=== PATIENT | female | born 1960 | race Caucasian/White ===

== ENCOUNTER → 2020-07-24 | Day surgery (SDC) | payer OTHER ==
[2020-07-24 10:43] LABS: BASO % 0.9 % (0-2.0); EOS % 1.4 % (0-4.5); HEMATOCRIT 37.8 % (32.4-45.2); HEMOGLOBIN 12.7 GM/dL (10.7-15.3); MCH 29.2 pg (25.7-33.7); MCHC 33.7 g/dl (32.0-36.0); MEAN CELL VOLUME 86.5 fl (80-96); MEAN PLT VOLUME 9.5 fl (7.5-11.1); MONO % 6.5 % (3.8-10.2); NEUT % 63.2 % (42.8-82.8); PLATELET COUNT 220 K/MM3 (134-434); RBC 4.36 M/mm3 (3.60-5.2); RDW 13.1 % (11.6-15.6); WHITE BLOOD COUNT 5.1 K/mm3 (4.0-10.0)
[2020-07-24 10:54] LABS: EPI CELLS 7 /uL (0-25.1); HYALINE CASTS 0 /uL (0-3.1); URINE APPEARANCE CLEAR; URINE BACTERIA 309 /uL (0-1359); URINE BILIRUBIN NEGATIVE (NEGATIVE); URINE COLOR YELLOW; URINE GLUCOSE (UA) NEGATIVE (NEGATIVE); URINE KETONE NEGATIVE (NEGATIVE); URINE LEUK ESTERASE NEGATIVE (NEGATIVE); URINE NITRITE NEGATIVE (NEGATIVE); URINE PROTEIN NEGATIVE (NEGATIVE); URINE RBC 11 /uL (0-23.9); URINE UROBILINOGEN 0.2 mg/dL (0.2-1.0); URINE WBC 5 /uL (0-25.8)
[2020-07-24 11:04] LABS: ALBUMIN 4.1 g/dl (3.4-5.0)
[2020-07-24 11:05] LABS: CALCIUM 9.3 mg/dL (8.5-10.1)
[2020-07-24 11:06] LABS: ALBUMIN 4.1 g/dl (3.4-5.0); BLOOD UREA NITROGEN 20.5 mg/dL (7-18)
[2020-07-24 11:08] LABS: BILIRUBIN,DIRECT 0.1 mg/dL (0.0-0.2)
[2020-07-24 11:09] LABS: CREATININE 0.8 mg/dL (0.55-1.3); TOT PROT 8.3 g/dl (6.4-8.2)
[2020-07-24 11:11] LABS: BILIRUBIN,TOTAL 0.6 mg/dL (0.2-1); TOT PROT 8.3 g/dl (6.4-8.2)
== END | disposition home or self-care (01) ==
LOC: JRADIR 09:32
PROVIDERS: ATTEND Internal Medicine Endocrinology, Diabetes & Metabolism
PROC: 0G9K3ZX Drainage of Thyroid Gland, Percutaneous Approach, Diagnostic (ICD-10-PCS; principal; 2020-07-24)
DX: E04.1 Nontoxic single thyroid nodule (principal)
CPT/HCPCS: 10005; 36415; 76942; 80053; 80061; 80076; 81003; 83036; 83721; 84436; 84443; 85025; 86376; 88173; 88305-TC

== ENCOUNTER 2020-09-14 05:15 | Day surgery (SDC) | payer OTHER ==
[2020-09-12 15:32] VITALS: BMI 28.6
[2020-09-14 11:42] VITALS: TEMP 97.6
[2020-09-14 13:11] VITALS: BP 123/63; PULSE 59
== END 2020-09-14 13:00 | disposition home or self-care (01) ==
LOC: JASU-ENDO 05:15 → MERGE 05:15 → JASU-ENDO 13:00
PROVIDERS: ATTEND Internal Medicine Gastroenterology
PROC: 0DBH8ZX Excision of Cecum, Via Natural or Artificial Opening Endoscopic, Diagnostic (ICD-10-PCS; principal; 2020-09-14 09:45)
DX: Z12.11 Encounter for screening for malignant neoplasm of colon (principal); K57.30 Diverticulosis of large intestine without perforation or abscess without bleeding; K64.8 Other hemorrhoids; D12.0 Benign neoplasm of cecum
CPT/HCPCS: 88305-TC